=== PATIENT | female | born 1980 | race Caucasian/White ===

== ENCOUNTER 2017-05-28 07:50 | Emergency (ER) | payer MEDICAID ==
[2017-05-28] MEDS ORDERED: SODIUM CHLORIDE 0.9% 1,000 ML IV ONE (07:55)
--- NOTE | 2017-05-28 08:07 | ED Physician Documentation ---
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 denies: Fever Cardiac: denies: Chest pain / pressure Respiratory: denies: Dyspnea GI: reports: Abdominal Pain, Nausea. denies: Vomiting, Hematemesis : reports: Control. 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) : None HEENT: None Psych: None Musculoskeletal: Other Derm: None Other Past Medical History: chronic back pain - Past Surgical History Past Surgical History: Yes General: 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 /RACKING TECHNICIAN: Other - Present Medications Home Medications: Ambulatory Orders Medication Instructions Recorded Confirmed Ranitidine HCl [Zantac] 150 mg PO BID 28 Days 07/18/13 05/28/17 Cyclobenzaprine [Flexeril] 1 tab PO PRN 05/28/17 HYDROcod/ACETAM 5/325 [[place] 5/325] 1 ea PO Q6H PRN #15 tablet 05/28/17 Ibuprofen [Motrin] 400 mg PO Q6H PRN #30 tablet 05/28/17 Ondansetron Odt [Zofran] 4 mg TL Q6H PRN #10 tablet 05/28/17 - Allergies Allergies/Adverse Reactions: Allergies Allergy/AdvReac Type Severity Reaction Status Date / Time Latex, Natural Rubber Allergy Rash Verified 06/25/16 20:28 acetaminophen [From Percocet] AdvReac vomiting Verified 06/25/16 20:28 oxycodone HCl * AdvReac vomiting Verified 06/25/16 20:28 [From Percocet] - Social History Does the pt smoke?: No Smoking Status: Former smoker Does the pt drink ETOH?: No Does the pt have substance abuse?: No - Immunizations Immunizations are current?: Yes - POLST Patient has POLST: No PD ED PE NORMAL - Vitals Vital signs reviewed: Yes - General General: Alert and oriented X 3, Other (clutching ruq and curled up in position) - Neck Neck: Supple, no meningeal sign - Cardiac Cardiac: RRR - Respiratory Respiratory: No respiratory distress, Clear bilaterally - Abdomen Abdomen: Soft, Other (TTP RUQ with + murphys, open appy scar RLQ) - Derm Derm: Normal color - Neuro Neuro: Alert and oriented X 3 Results - Vitals Vitals: Vital Signs - 24 hr 05/28/17 05/28/17 05/28/17 07:54 11:43 13:50 Temperature 36.6 C 36.1 C L Heart Rate 77 58 L 80 Respiratory 18 18 20 Rate Blood Pressure 121/93 H 112/75 123/82 H O2 Saturation 100 100 98 Oxygen O2 Source Room air - Labs Labs: Laboratory Tests 05/28/17 05/28/17 05/28/17 09:35 09:35 09:35 WBC 8.0 RBC 4.35 Hgb 12.7 Hct 37.7 MCV 86.8 MCH 29.2 MCHC 33.6 RDW 12.2 Plt Count 202 MPV 9.4 Neut # 4.6 Lymph # 2.6 [place] # 0.6 Eos # 0.1 Baso # 0.1 Absolute Nucleated RBC 0.00 Nucleated RBCs 0.0 Sodium 138 Potassium 3.9 Chloride 109 Carbon Dioxide 21 Anion Gap 8.0 BUN 13 Creatinine 0.7 Estimated GFR (MDRD) 94 Glucose 129 H Calcium 8.6 Total Bilirubin 0.2 AST 40 ALT 55 Alkaline Phosphatase 43 Total Protein 6.6 L Albumin 3.4 Globulin 3.2 Albumin/Globulin Ratio 1.1 Lipase 28 Serum HCG, Qual NEGATIVE - Rads (name of study) GB sono Radiology: See rad report (no gallstones) CT abd pelvis with IV con Radiology: See rad report (descending colon epiploic appendagitis, ddx includes small omental infarction - bu no bowel ischemia noted) Departure - Departure Disposition: 01 Home, Self Care Clinical Impression: Epiploic appendagitis Condition: Good Follow-Up: Sintia Dennison ARNP [Primary Care Provider] - Prescriptions: Ibuprofen [Motrin] 400 mg PO Q6H PRN #30 tablet PRN Reason: Pain HYDROcod/ACETAM 5/325 [[place] 5/325] 1 ea PO Q6H PRN #15 tablet PRN Reason: Severe Pain Ondansetron Odt [Zofran] 4 mg TL Q6H PRN #10 tablet PRN Reason: Nausea / Vomiting Comments: You do not have gallstones or appendicitis The CT scan shows that your pain is due to a process called epipolic appendicitis which means that a bundle of fat and blood vessels attached to your colon that has become twisted and lost its blood flow. This is very painful but not dangerous and does not need surgery or antibiotics. It will take between 2 days and 2 weeks to resolve. You can go home and eat normally Because this is a very painful process I have prescribed motrin and vicodin for the pain Follow up with your PMD if not better in two weeks and return to the ER if worse or new symptoms develop Forms: Activity restrictions
[2017-05-28] MEDS ORDERED: ONDANSETRON 4 MG/2 ML VIAL IVP STA ×2 (08:08→10:36)
[2017-05-28] MEDS ORDERED: HYDROmorphone 1 MG/ML SYRINGE IVP STA ×2 (08:08→13:23)
[2017-05-28] MEDS ORDERED: ONDANSETRON 4 MG/2 ML VIAL ONE ×2 (08:16→10:43)
[2017-05-28] MEDS ORDERED: HYDROmorphone 1 MG/ML SYRINGE ONE ×2 (08:16→13:30)
--- NOTE | 2017-05-28 09:36 | Ultrasound Report ---
LIMITED ABDOMEN ULTRASOUND: 05/28/2017 CLINICAL HISTORY: Right upper quadrant pain. TECHNIQUE: Real time scanning by the associate scientist with saved static images were reviewed. FINDINGS: LIVER: 19 cm in length. Unremarkable echotexture. Normal direction of portovenous blood flow. GALLBLADDER: Negative. No stones. Wall thickness 2 mm. COMMON BILE DUCT: 5 mm. RIGHT KIDNEY: 10.6 cm in length. Unremarkable. No hydronephrosis. FREE FLUID: None. INFERIOR VENA CAVA AND PANCREATIC HEAD: Unremarkable. AORTA: Normal size. COMMENT: Increased right upper quadrant gas. IMPRESSION: MILD HEPATOMEGALY. OTHERWISE, NEGATIVE ABDOMEN ULTRASOUND. FINDINGS ARE SIMILAR TO THE [facility] ULTRASOUND OF 07/18/2013. JOB #: [id number] EXT JOB #:[id number]
[2017-05-28 09:42] LABS: BASOPHILS # (AUTO) 0.1 10^3/uL (0.0-0.1); BASOPHILS % (AUTO) 0.7 %; EOSINOPHILS # (AUTO) 0.1 10^3/uL (0.0-0.7); EOSINOPHILS % (AUTO) 1.3 %; HCT - HEMATOCRIT 37.7 % (37.0-47.0); HGB - HEMOGLOBIN 12.7 g/dL (12.0-16.0); LYMPHOCYTES # (AUTO) 2.6 10^3/uL (1.5-3.5); LYMPHOCYTES % (AUTO) 32.9 %; MEAN CORPUSCULAR HEMOGLOBIN 29.2 pg (27.0-31.0); MEAN CORPUSCULAR HGB CONC 33.6 g/dL (32.0-36.0); MEAN CORPUSCULAR VOLUME 86.8 fL (81.0-99.0); MEAN PLATELET VOLUME 9.4 fL (7.9-10.8); MONOCYTES # (AUTO) 0.6 10^3/uL (0.0-1.0); MONOCYTES % (AUTO) 7.2 %; NEUTROPHILS # (AUTO) 4.6 10^3/uL (1.5-6.6); NEUTROPHILS % (AUTO) 57.9 %; RED BLOOD COUNT 4.35 10^6/uL (4.20-5.40); RED CELL DISTRIBUTION WIDTH 12.2 % (12.0-15.0)
[2017-05-28 10:00] LABS: ALBUMIN/GLOBULIN RATIO 1.1 (1.0-2.2); BILIRUBIN,TOTAL 0.2 mg/dL (0.2-1.0); CALCIUM 8.6 mg/dL (8.5-10.3); CREATININE 0.7 mg/dL (0.4-1.0); POTASSIUM 3.9 mmol/L (3.5-5.0); TOTAL PROTEIN 6.6 g/dL (6.7-8.2)
[2017-05-28] MEDS ORDERED: IOPAMIDOL-300 100 ML VIAL ONE (12:25)
[2017-05-28] MEDS ORDERED: IOPAMIDOL-300 100 ML VIAL IVP ONE (12:52)
--- NOTE | 2017-05-28 13:29 | CT Preliminary Report ---
Exam: CT Abdomen/Pelvis W/ IMPRESSION: 1. Findings are most suggestive of descending colon epiploic appendagitis. Differential includes a sm all omental infarction. 2. Chronic and incidental findings as above. [facility] SITE ID: [id number]
--- NOTE | 2017-05-28 13:32 | CT Report ---
EXAM: CT ABDOMEN AND PELVIS EXAM DATE: 05/28/2017 12:52 PM. CLINICAL HISTORY: Upper abd pain, sono non diagnostic. COMPARISONS: Ultrasound performed earlier the same day. CT abdomen and pelvis 06/25/2016. TECHNIQUE: Routine helical CT imaging was performed through the abdomen and pelvis. IV contrast: 100 cc Isovue-300. Enteric contrast: No. Reconstructions: Coronal and sagittal. In accordance with CT protocol optimization, one or more of the following dose reduction techniques w ere utilized for this exam: automated exposure control, adjustment of mA and/or KV based on patient s ize, or use of iterative reconstructive technique. FINDINGS: Lung Bases: Normal. Liver: Probable mild hepatomegaly; otherwise normal. Gallbladder/Bile Ducts: Within normal limits. Spleen: Course scattered parenchymal calcifications are similar to prior. The spleen is otherwise wit hin normal limits. Pancreas: Normal. Adrenal Glands: Normal. Kidneys: Normal. No masses or hydronephrosis. Peritoneal Cavity/Bowel: Inflammatory fat stranding adjacent to the descending colon measures 2.7 x 1 .2 cm (axial image 58 and coronal image 28). There is central fat density within the inflammation. Th e appendix is not visualized; no pericecal inflammatory change. Pelvic Organs: The urinary bladder and imaged pelvic organs are within normal limits. Presumed contra ceptive device in place. Vasculature: Normal. Bones: No significant abnormality. Other: None. IMPRESSION: 1. Findings are most suggestive of descending colon epiploic appendagitis. Differential includes a sm all omental infarction. 2. Chronic and incidental findings as above. [facility] Referring Provider Line: [phone] SITE ID: [id number]
[2017-05-28] MEDS ORDERED: PROMETHAZINE INJ 25 MG in SODIUM CHLORIDE 0.9% 50 ML IV STA (13:48)
[2017-05-28 13:51] VITALS: BP 123/82
[2017-05-28] MEDS ORDERED: PROMETHAZINE 25 MG/1 ML VIAL ONE (13:56)
[2017-05-28] MEDS ORDERED: SODIUM CHLORIDE FLUSH 0.9% 10 ML SYRINGE IVP ONE (14:01)
== END 2017-05-28 14:41 | disposition home or self-care (01) ==
LOC: ED 07:50
DX: K63.89 Other specified diseases of intestine (principal)
CPT/HCPCS: 36415; 74177; 76705; 80053; 83690; 84703; 85025; 96361; 96365; 96375; 96376; 99283; 99284; J1170; J7040; Q9967

== ENCOUNTER 2017-06-04 18:33 | Emergency (ER) | payer MEDICAID ==
[2017-06-04 19:51] LABS: BILIRUBIN,URINE NEGATIVE (NEGATIVE)
[2017-06-04 19:56] LABS: UA CHARGE (STRIP ONLY) YES; UR CULTURE IF IND NOT INDICATED
[2017-06-04 19:57] LABS: HCG UR QUAL NEGATIVE
[2017-06-04] MEDS ORDERED: MORPHINE 10 MG/ML VIAL IVP STA (20:32)
[2017-06-04] MEDS ORDERED: SODIUM CHLORIDE 0.9% 1,000 ML IV ONE (20:32)
[2017-06-04] MEDS ORDERED: KETOROLAC 60 MG/2 ML VIAL IVP STA (20:32)
[2017-06-04] MEDS ORDERED: KETOROLAC 15 MG/ML VIAL ONE (20:44)
[2017-06-04] MEDS ORDERED: MORPHINE 2 MG/ML SYRINGE ONE ×2 (20:44)
--- NOTE | 2017-06-04 20:56 | ED Physician Documentation ---
PD HPI ABD PAIN - Stated complaint Stated Complaint: ABD PX/NAUSEA - Chief complaint Chief Complaint: Abd Pain - History obtained from History obtained from: Patient - History of Present Illness Timing - onset: How many weeks ago Timing - details: Gradual onset, Waxing and waning Quality: Cramping, Aching, Sharp Location: All over / everywhere, RUQ, LUQ Worsened by: Position, Palpation Associated symptoms: Nausea. No: Vomiting, Hematemesis Similar symptoms before: Work up / diagnostics, Treatment Recently seen: Emergency Dept - Additional information Additional information: Patient is a 36 year old female presenting to the emergency department for abdominal pain. patient was seen about a week ago and diagnosed with appendigitis. patient has a follow up appointment in two days but ran out of meds and the pain has been persistent so the patient came in for evaluation. Review of Systems Constitutional: denies: Fever, Chills Eyes: reports: Reviewed and negative Ears: reports: Reviewed and negative Nose: denies: Rhinorrhea / runny nose, Congestion Throat: denies: Sore throat Cardiac: denies: Chest pain / pressure Respiratory: denies: Cough, Wheezing GI: reports: Abdominal Pain, Nausea. 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) : None HEENT: None Psych: None Musculoskeletal: Other Derm: None - Past Surgical History Past Surgical History: Yes General: 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 /AUDIO VISUAL DIRECTOR: Other - Present Medications Home Medications: Ambulatory Orders Medication Instructions Recorded Confirmed Ranitidine HCl [Zantac] 150 mg PO BID 28 Days tablet 07/18/13 05/28/17 Cyclobenzaprine [Flexeril] 1 tab PO PRN 05/28/17 HYDROcod/ACETAM 5/325 [[place] 5/325] 1 ea PO Q6H PRN #15 tablet 05/28/17 Ibuprofen [Motrin] 400 mg PO Q6H PRN #30 tablet 05/28/17 Ondansetron Odt [Zofran] 4 mg TL Q6H PRN #10 tablet 05/28/17 Hydrocodone/Acetaminophen [Vicodin 1 each PO Q6H #6 tablet 06/04/17 5-300 mg Tablet] Ondansetron Odt [Zofran] 4 mg TL Q6H PRN #14 tablet 06/04/17 - Allergies Allergies/Adverse Reactions: Allergies Allergy/AdvReac Type Severity Reaction Status Date / Time Latex, Natural Rubber Allergy Rash Verified 06/04/17 18:39 oxycodone HCl * AdvReac vomiting Verified 06/04/17 18:39 [From Percocet] - Social History Does the pt smoke?: No Smoking Status: Never smoker Does the pt drink ETOH?: No Does the pt have substance abuse?: No - Immunizations Immunizations are current?: Yes - POLST Patient has POLST: No PD ED PE NORMAL - Vitals Vital signs reviewed: Yes - General General: Alert and oriented X 3, No acute distress - HEENT HEENT: Atraumatic, PERRL - Neck Neck: Supple, no meningeal sign - Cardiac Cardiac: RRR, No murmur - Respiratory Respiratory: No respiratory distress, Clear bilaterally - Abdomen Abdomen: Soft, Non distended - Derm Derm: Normal color, No rash - Extremities Extremities: No deformity, No edema - Neuro Neuro: Alert and oriented X 3, No motor deficit, No sensory deficit, Normal speech - Psych Psych: Normal mood, Normal affect PD ED PE EXPANDED - HEENT HEENT: Dry mucous membranes - Abdomen Abdomen: Tender to palpation, Generalized/diffuse. No: Rebound, Guarding Results - Vitals Vitals: Vital Signs - 24 hr 06/04/17 06/04/17 06/04/17 18:36 21:47 22:40 Temperature 36 C L 36.3 C L 36.3 C L Heart Rate 95 73 69 Respiratory 20 16 12 Rate Blood Pressure 126/88 H 109/66 128/84 H O2 Saturation 96 97 100 Oxygen O2 Source Room air - Labs Labs: Laboratory Tests 06/04/17 06/04/17 06/04/17 19:41 19:41 21:21 WBC 9.1 RBC 4.36 Hgb 12.8 Hct 37.4 MCV 85.8 MCH 29.3 MCHC 34.2 RDW 12.3 Plt Count 252 MPV 9.3 Neut # 4.9 Lymph # 3.2 [place] # 0.8 Eos # 0.1 Baso # 0.1 Absolute Nucleated RBC 0.00 Nucleated RBC % 0.0 Sodium Potassium Chloride Carbon Dioxide Anion Gap BUN Creatinine Estimated GFR (MDRD) Glucose Calcium Total Bilirubin AST ALT Alkaline Phosphatase Total Protein Albumin Globulin Albumin/Globulin Ratio Lipase Urine Color YELLOW Urine Clarity CLEAR Urine pH 6.0 Ur Specific [place] 1.025 1.025 Urine Protein NEGATIVE Urine Glucose (UA) NEGATIVE Urine Ketones NEGATIVE Urine Occult Blood NEGATIVE Urine Nitrite NEGATIVE Urine Bilirubin NEGATIVE Urine Urobilinogen 0.2 (NORMAL) Ur Leukocyte Esterase NEGATIVE Ur Microscopic Review NOT INDICATED Urine Culture Comments NOT INDICATED Urine HCG, Qual NEGATIVE 06/04/17 21:21 WBC RBC Hgb Hct MCV MCH MCHC RDW Plt Count MPV Neut # Lymph # [place] # Eos # Baso # Absolute Nucleated RBC Nucleated RBC % Sodium 138 Potassium 3.7 Chloride 104 Carbon Dioxide 24 Anion Gap 10.0 BUN 18 Creatinine 0.9 Estimated GFR (MDRD) 70 L Glucose 122 H Calcium 9.3 Total Bilirubin 0.5 AST 25 ALT 30 Alkaline Phosphatase 39 L Total Protein 7.2 Albumin 3.9 Globulin 3.3 Albumin/Globulin Ratio 1.2 Lipase 24 Urine Color Urine Clarity Urine pH Ur Specific [place] Urine Protein Urine Glucose (UA) Urine Ketones Urine Occult Blood Urine Nitrite Urine Bilirubin Urine Urobilinogen Ur Leukocyte Esterase Ur Microscopic Review Urine Culture Comments Urine HCG, Qual PD MEDICAL DECISION MAKING - ED course Complexity details: reviewed old records, reviewed results, re-evaluated patient , considered differential, d/w patient ED course: Patient was seen and examined at bedside. patient labs were drawn, urine was collected. Patient's previous records were reviewed. Patient was treated with toradol and morphine as well as iv fluids. When patient's diagnostics came back they were all within normal limits. patient had close outpatient follow up and was stable for discharge. Departure - Departure Disposition: 01 Home, Self Care Clinical Impression: Epiploic appendagitis Condition: Good Instructions: Abdominal Pain Follow-Up: Sintia Dennison ARNP [Primary Care Provider] - Within 3 Days (please follow up with your doctor at your appointment on friday) Prescriptions: Hydrocodone/Acetaminophen [Vicodin 5-300 mg Tablet] 1 each PO Q6H #6 tablet Ondansetron Odt [Zofran] 4 mg TL Q6H PRN #14 tablet PRN Reason: Nausea / Vomiting Comments: Your diagnostics today were within normal limits. It is likely an exacerbation of your abdominal pain. You should follow up with your pmd on friday for further evaluation and care.
[2017-06-04 21:27] LABS: BASOPHILS # (AUTO) 0.1 10^3/uL (0.0-0.1); BASOPHILS % (AUTO) 0.7 %; EOSINOPHILS # (AUTO) 0.1 10^3/uL (0.0-0.7); EOSINOPHILS % (AUTO) 1.1 %; HCT - HEMATOCRIT 37.4 % (37.0-47.0); HGB - HEMOGLOBIN 12.8 g/dL (12.0-16.0); LYMPHOCYTES # (AUTO) 3.2 10^3/uL (1.5-3.5); LYMPHOCYTES % (AUTO) 35.3 %; MEAN CORPUSCULAR HEMOGLOBIN 29.3 pg (27.0-31.0); MEAN CORPUSCULAR HGB CONC 34.2 g/dL (32.0-36.0); MEAN CORPUSCULAR VOLUME 85.8 fL (81.0-99.0); MEAN PLATELET VOLUME 9.3 fL (7.9-10.8); MONOCYTES # (AUTO) 0.8 10^3/uL (0.0-1.0); MONOCYTES % (AUTO) 8.6 %; NEUTROPHILS # (AUTO) 4.9 10^3/uL (1.5-6.6); NEUTROPHILS % (AUTO) 54.3 %; RED BLOOD COUNT 4.36 10^6/uL (4.20-5.40); RED CELL DISTRIBUTION WIDTH 12.3 % (12.0-15.0); UNCORRECTED WHITE BLOOD COUNT 9.1 x10^3/uL; WHITE BLOOD COUNT 9.1 x10^3/uL (4.8-10.8)
[2017-06-04] MEDS ORDERED: ONDANSETRON 4 MG/2 ML VIAL IVP STA (21:28)
[2017-06-04 21:38] LABS: ALBUMIN/GLOBULIN RATIO 1.2 (1.0-2.2); BILIRUBIN,TOTAL 0.5 mg/dL (0.2-1.0); CALCIUM 9.3 mg/dL (8.5-10.3); CREATININE 0.9 mg/dL (0.4-1.0); POTASSIUM 3.7 mmol/L (3.5-5.0); TOTAL PROTEIN 7.2 g/dL (6.7-8.2)
[2017-06-04] MEDS ORDERED: ONDANSETRON 4 MG/2 ML VIAL ONE (21:40)
[2017-06-04] MEDS ORDERED: HYDROcod/ACET 5/325 Prepack 6 PO STA (22:32)
[2017-06-04] MEDS ORDERED: HYDROcod/ACET 5/325 Prepack 6 PO ONE (22:37)
[2017-06-04 22:40] VITALS: BP 128/84
== END 2017-06-04 22:49 | disposition home or self-care (01) ==
LOC: ED 18:33
DX: K63.89 Other specified diseases of intestine (principal)
CPT/HCPCS: 36415; 80053; 81003; 81025; 83690; 85025; 96361; 96374; 96375; 99284; J2270; 81001; 87086

== ENCOUNTER 2018-06-11 14:15 | Emergency (ER) | payer MEDICAID ==
[2018-06-11] MEDS ORDERED: ASPIRIN CHEW 81 MG TABLET PO STA (14:39)
--- NOTE | 2018-06-11 14:43 | ED Physician Documentation ---
PD HPI CHEST PAIN - Stated complaint Stated Complaint: CHEST PX - Chief complaint Chief Complaint: Cardiac - History obtained from History obtained from: Patient - History of Present Illness Timing - onset: How many hours ago (3.5) Timing - onset during: Rest Timing - duration: Hours (3.5) Timing - details: Gradual onset Pain level max: 8 Pain level now: 7 Quality: Sharp Location: Left chest Radiation: Left upper extremity Improved by: Nothing Worsened by: Other (nothing). No: Exertion, Inspiration, Eating, Movement, Palpation, Position Associated symptoms: No: Shortness of air, Diaphoresis, Nausea, Vomiting, Feeling faint / dizzy, General Weakness, Palpitations, Cough Similar symptoms before: Has not had sx before Recently seen: Not recently seen - Additional information Additional information: No recent surgery, immobilization. No calf pain or swelling. 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) : None HEENT: None Psych: None Musculoskeletal: Other Derm: None - Past Surgical History Past Surgical History: Yes General: 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 /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: Other - Present Medications Home Medications: Ambulatory Orders Medication Instructions Recorded Confirmed Ranitidine HCl [Zantac] 150 mg PO BID 28 Days tablet 07/18/13 05/28/17 Cyclobenzaprine [Flexeril] 1 tab PO PRN 05/28/17 HYDROcod/ACETAM 5/325 [[place] 5/325] 1 ea PO Q6H PRN #15 tablet 05/28/17 Ibuprofen [Motrin] 400 mg PO Q6H PRN #30 tablet 05/28/17 Ondansetron Odt [Zofran] 4 mg TL Q6H PRN #10 tablet 05/28/17 Hydrocodone/Acetaminophen [Vicodin 1 each PO Q6H #6 tablet 09/27/17 5-300 mg Tablet] Ondansetron Odt [Zofran] 4 mg TL Q6H PRN #14 tablet 06/04/17 - Allergies Allergies/Adverse Reactions: Allergies Allergy/AdvReac Type Severity Reaction Status Date / Time Latex, Natural Rubber Allergy Rash Verified 06/11/18 14:25 oxycodone HCl * AdvReac vomiting Verified 06/11/18 14:25 [From Percocet] - Social History Does the pt smoke?: No Smoking Status: Former smoker Does the pt drink ETOH?: No Does the pt have substance abuse?: No - Immunizations Immunizations are current?: Yes - POLST Patient has POLST: No PD ED PE NORMAL - Vitals Vital signs reviewed: Yes - General General: Alert and oriented X 3, No acute distress - HEENT HEENT: Moist mucous membranes - Neck Neck: Supple, no meningeal sign - Cardiac Cardiac: RRR, Strong equal pulses - Respiratory Respiratory: No respiratory distress, Clear bilaterally - Abdomen Abdomen: Soft, Non tender, Non distended - Back Back: No spinal TTP - Derm Derm: Warm and dry - Extremities Extremities: No tenderness to palpate, Normal ROM s pain, No edema, No calf tenderness / cord - Neuro Neuro: Alert and oriented X 3 - Psych Psych: Normal mood, Normal affect - Free text exam Free text exam: No tenderness across the anterior chest wall Results - Vitals Vitals: Vital Signs - 24 hr 06/11/18 14:22 Temperature 35.9 C L Heart Rate 88 Respiratory 18 Rate Blood Pressure 148/96 H O2 Saturation 98 Oxygen O2 Source Room air - EKG (time done) 1423 Rate: Rate (enter#) (79) Rhythm: NSR [place]: Normal Intervals: Normal MA QRS: Normal Ischemia: Normal ST segments - Rads (name of study) cxr Radiology: Prelim report reviewed, EMP read contemporaneously, See rad report (No acute abnormality) PD MEDICAL DECISION MAKING - ED course Complexity details: reviewed results, re-evaluated patient, considered differential (No ST elevation HI, no aortic dissection, no PE, no tension pneumothorax, no aortic aneurysm), d/w patient ED course: Patient is a 37-year-old female who presents to the emergency department with sharp left-sided chest pain. Radiating to the left arm. This was constant for several hours before coming to the emergency department. Feels better after Toradol and hydrocodone. Did not change with aspirin. Negative d-dimer. No acute findings on EKG or troponin. Low risk for ACS. Will have her follow-up with her doctor for further care. Patient counseled regarding signs and symptoms for which I believe and urgent re-evaluation would be necessary. Patient with good understanding of and agreement to plan and is comfortable going home at this time This document was made in part using voice recognition software. While efforts are made to proofread this document, sound alike and grammatical errors may occur. - Sepsis Event Vital Signs: Vital Signs - 24 hr 06/11/18 14:22 Temperature 35.9 C L Heart Rate 88 Respiratory 18 Rate Blood Pressure 148/96 H O2 Saturation 98 Oxygen O2 Source Room air Departure - Departure Disposition: 01 Home, Self Care Clinical Impression: Atypical chest pain Condition: Good Instructions: ED Chest Pain Atypical Unkn Cause Follow-Up: Sintia Dennison ARNP [Primary Care Provider] - Within 1 week Comments: Return if you worsen. The cause of your symptoms is unclear today, but does not appear related to your heart today. follow up with your doctor for further care. Discharge Date/Time: 06/11/18 17:24
--- NOTE | 2018-06-11 15:18 | XRAY Report ---
Reason: chest pain Procedure Date: 06/11/2018 Accession Number: [id number] / [id number] Procedure: XR - Chest 1 View X-Ray CPT Code: 87592 FULL RESULT: EXAM: CHEST RADIOGRAPHY EXAM DATE: 06/11/2018 03:09 PM. CLINICAL HISTORY: Chest pain. COMPARISON: 10/20/2012 9:38 PM. TECHNIQUE: 1 view. FINDINGS: Lungs/Pleura: No focal opacities evident. No pleural effusion. No pneumothorax. Mediastinum: Within exam limitations, the cardiomediastinal contour is normal. Other: None. IMPRESSION: No acute cardiopulmonary abnormality. [facility]
[2018-06-11 16:34] LABS: BASOPHILS # (AUTO) 0.1 10^3/uL (0.0-0.1); EOSINOPHILS # (AUTO) 0.1 10^3/uL (0.0-0.7); EOSINOPHILS % (AUTO) 1.1 %; HGB - HEMOGLOBIN 13.4 g/dL (12.0-16.0); LYMPHOCYTES # (AUTO) 2.9 10^3/uL (1.5-3.5); LYMPHOCYTES % (AUTO) 39.2 %; MEAN CORPUSCULAR HEMOGLOBIN 29.5 pg (27.0-31.0); MEAN CORPUSCULAR HGB CONC 34.6 g/dL (32.0-36.0); MEAN CORPUSCULAR VOLUME 85.5 fL (81.0-99.0); MEAN PLATELET VOLUME 9.3 fL (7.9-10.8); MONOCYTES # (AUTO) 0.6 10^3/uL (0.0-1.0); MONOCYTES % (AUTO) 8.1 %; NEUTROPHILS # (AUTO) 3.8 10^3/uL (1.5-6.6); NEUTROPHILS % (AUTO) 50.6 %; PLT - PLATELET COUNT 242 10^3/uL (130-450); RED BLOOD COUNT 4.52 10^6/uL (4.20-5.40); RED CELL DISTRIBUTION WIDTH 12.7 % (12.0-15.0); WHITE BLOOD COUNT 7.4 x10^3/uL (4.8-10.8)
[2018-06-11 16:47] LABS: ALBUMIN/GLOBULIN RATIO 1.1 (1.0-2.2); BILIRUBIN,TOTAL 0.5 mg/dL (0.2-1.0); CALCIUM 9.4 mg/dL (8.5-10.3); CREATININE 1.1 mg/dL (0.4-1.0); TOTAL PROTEIN 7.6 g/dL (6.7-8.2)
[2018-06-11] MEDS ORDERED: KETOROLAC 60 MG/2 ML VIAL IM STA (16:58)
[2018-06-11] MEDS ORDERED: HYDROcod/ACETAM 5/325 MG TABLET PO STA (16:59)
[2018-06-11] MEDS ORDERED: ONDANSETRON ODT 4 MG TABLET TL STA (16:59)
[2018-06-11 17:23] VITALS: BP 140/84
== END 2018-06-11 17:24 | disposition home or self-care (01) ==
LOC: ED 14:15
DX: R07.89 Other chest pain (principal); Z87.891 Personal history of nicotine dependence
CPT/HCPCS: 36415; 71045; 80053; 83690; 84484; 85025; 85379; 93005; 96372; 99283; A9270; Q0162

== ENCOUNTER 2019-04-27 15:38 | Outpatient (CLI) | payer BC, MEDICAID ==
--- NOTE | 2019-04-29 08:59 | XRAY Report ---
Reason: EPIGASTRIC PAIN Procedure Date: 04/27/2019 Accession Number: [id number] / [id number] Procedure: XRN - Abdomen Acute CPT Code: FULL RESULT: EXAM: ABDOMINAL SERIES AND PA CHEST EXAM DATE: 04/27/2019 04:02 PM. CLINICAL HISTORY: Epigastric pain. COMPARISON: CHEST 1 VIEW 06/11/2018 2:59 PM. TECHNIQUE: 2 views abdomen and 1 view chest. FINDINGS: CHEST: Lungs/Pleura: No focal opacities. No effusion or pneumothorax. Mediastinum: Within exam limitations, cardiomediastinal contour is normal. ABDOMEN: Bowel Gas Pattern: Within normal limits. No dilated loops or abnormal fluid levels. Free Air: None. Other: None. IMPRESSION: Normal abdominal series (including 1-view chest). [facility]
== END 2019-04-27 15:39 | disposition home or self-care (01) ==
LOC: DI.N 15:38
PROVIDERS: ATTEND Family Medicine
DX: R10.13 Epigastric pain (principal)
CPT/HCPCS: 36415; 74022; 80053; 82150; 83690; 85025

== ENCOUNTER 2019-04-27 16:52 | Outpatient (CLI) | payer BC, MEDICAID ==
[2019-04-27 17:23] LABS: BASOPHILS % (AUTO) 0.5 %; EOSINOPHILS # (AUTO) 0.1 10^3/uL (0.0-0.7); EOSINOPHILS % (AUTO) 1.7 %; HGB - HEMOGLOBIN 12.6 g/dL (12.0-16.0); LYMPHOCYTES # (AUTO) 2.5 10^3/uL (1.5-3.5); LYMPHOCYTES % (AUTO) 32.8 %; MEAN CORPUSCULAR HEMOGLOBIN 28.3 pg (27.0-31.0); MEAN CORPUSCULAR HGB CONC 32.1 g/dL (32.0-36.0); MEAN CORPUSCULAR VOLUME 88.1 fL (81.0-99.0); MEAN PLATELET VOLUME 10.8 fL (7.9-10.8); MONOCYTES # (AUTO) 0.7 10^3/uL (0.0-1.0); MONOCYTES % (AUTO) 9.1 %; NEUTROPHILS # (AUTO) 4.3 10^3/uL (1.5-6.6); NEUTROPHILS % (AUTO) 55.6 %; PLT - PLATELET COUNT 261 10^3/uL (130-450); RED BLOOD COUNT 4.46 10^6/uL (4.20-5.40); RED CELL DISTRIBUTION WIDTH 13.1 % (12.0-15.0); WHITE BLOOD COUNT 7.7 x10^3/uL (4.8-10.8)
[2019-04-27 17:32] LABS: ALBUMIN 4.3 g/dL (3.2-5.5); ALBUMIN/GLOBULIN RATIO 1.3 (1.0-2.2); BILIRUBIN,TOTAL 0.2 mg/dL (0.2-1.0); CALCIUM 9.6 mg/dL (8.5-10.3); CREATININE 0.7 mg/dL (0.4-1.0); TOTAL PROTEIN 7.5 g/dL (6.7-8.2)
== END 2019-04-27 16:53 | disposition home or self-care (01) ==
LOC: LAB 16:52
PROVIDERS: ATTEND Family Medicine
DX: R10.13 Epigastric pain (principal)
CPT/HCPCS: 36415; 80053; 82150; 83690; 85025

== ENCOUNTER 2019-04-28 07:20 | Outpatient (CLI) | payer BC, MEDICAID ==
[2019-04-28 19:29] LABS: H. PYLORIS ANTIGEN STL NEGATIVE (Negative)
== END 2019-04-28 23:59 | disposition home or self-care (01) ==
LOC: LAB.R 07:20
PROVIDERS: ATTEND Family Medicine
DX: R10.13 Epigastric pain (principal)
CPT/HCPCS: 87338; 87493

== ENCOUNTER 2019-04-29 09:37 | Emergency (ER) | payer BC, MEDICAID ==
[2019-04-29] MEDS ORDERED: MAG HYDROX/AL HYDROX/SIMETH 30 ML UDC PO STA (09:51)
[2019-04-29] MEDS ORDERED: PHENobarb/HYOSCY/ATROPINE/SCOP 5 ML SYRINGE PO STA (09:51)
[2019-04-29] MEDS ORDERED: LIDOCAINE VISCOUS 2% 15 ML UDC MM STA (09:51)
--- NOTE | 2019-04-29 09:55 | ED Physician Documentation ---
PD HPI ABD PAIN - Stated complaint Stated Complaint: UPPER ABD PX - Chief complaint Chief Complaint: Abd Pain - History obtained from History obtained from: Patient - History of Present Illness Timing - onset: How many days ago (5) Timing - details: Intermittant Quality: Sharp Location: Epigastric Worsened by: Moving Associated symptoms: Nausea. No: Fever, Vomiting, Diarrhea, Dysuria Recently seen: Clinic (2 days ago.) - Treatment prior to arrival Treatment prior to arrival: Zantac, Ibuprophen. - Additional information Additional information: The patient is a 38-year-old female who presents with epigastric abdominal pain that started 5 days ago and has recurred intermittently since that time. She describes it as a sharp pain that is worse with movement. She has found no difference with food. She has been using Zantac and ibuprofen without relief. She was seen by her primary physician 2 days ago for this pain. CBC, chemistry panel, and urinalysis at that time were unremarkable. She presents to the emergency department this morning because of recurrent/worsening pain. Past medical history is significant for gastroesophageal reflux disease for which she takes Zantac. Review of Systems Constitutional: denies: Fever Nose: denies: Congestion Throat: denies: Sore throat Cardiac: denies: Chest pain / pressure Respiratory: denies: Dyspnea, Cough GI: reports: Abdominal Pain, Nausea. denies: Vomiting, Diarrhea : reports: LMP (Currently on her menstrual period.). denies: Dysuria Skin: denies: Rash Musculoskeletal: denies: Back pain Neurologic: denies: Headache PD PAST MEDICAL HISTORY - Past Medical History Cardiovascular: None Respiratory: None Endocrine/Autoimmune: None GI: GERD, Ulcers AMBULATORY CARE COORDINATOR: Miscarriage(s) : None HEENT: None Psych: None Musculoskeletal: Other Derm: None - Past Surgical History Past Surgical History: Yes General: 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 /AMBULATORY CARE COORDINATOR: Other - Present Medications Home Medications: Ambulatory Orders Medication Instructions Recorded Confirmed raNITIdine HCl [Zantac] 150 mg PO BID 28 Days tablet 07/18/13 05/28/17 Cyclobenzaprine [Flexeril] 1 tab PO PRN 05/28/17 HYDROcod/ACETAM 5/325 [[place] 5/325] 1 ea PO Q6H PRN #15 tablet 05/28/17 Ibuprofen [Motrin] 400 mg PO Q6H PRN #30 tablet 05/28/17 Ondansetron Odt [Zofran] 4 mg TL Q6H PRN #10 tablet 05/28/17 Hydrocodone/Acetaminophen [Vicodin 1 each PO Q6H #6 tablet 06/04/17 5-300 mg Tablet] Ondansetron Odt [Zofran] 4 mg TL Q6H PRN #14 tablet 06/04/17 Cetirizine HCl/Pseudoephedrine 1 each PO BID PRN #30 tab.er.12h 08/15/18 [Zyrtec-D Tablet] Meloxicam [Mobic] 7.5 mg PO BID PRN #20 tablet 08/15/18 Hydrocodone/Acetaminophen 1 - 2 each PO Q6H PRN #20 tablet 04/29/19 [Hydrocodon-Acetaminophen 5-325] Omeprazole 40 mg PO DAILY #30 capsule. 04/29/19 Promethazine [Phenergan] 25 mg PO Q6H PRN #10 tab 04/29/19 - Allergies Allergies/Adverse Reactions: Allergies Allergy/AdvReac Type Severity Reaction Status Date / Time Latex, Natural Rubber Allergy Rash Verified 04/29/19 09:42 oxycodone HCl * AdvReac vomiting Verified 04/29/19 09:42 [From Percocet] - Social History Does the pt smoke?: No Smoking Status: Never smoker Does the pt drink ETOH?: No Does the pt have substance abuse?: No - Immunizations Immunizations are current?: Yes - POLST Patient has POLST: No PD ED PE NORMAL - Vitals Vital signs reviewed: Yes (Normal) - General General: Alert and oriented X 3, Well developed/nourished - HEENT HEENT: Atraumatic, Moist mucous membranes - Neck Neck: No adenopathy, No JVD - Cardiac Cardiac: RRR - Respiratory Respiratory: No respiratory distress, Clear bilaterally - Abdomen Abdomen: Normal bowel sounds, Soft, Other (Epigastric tenderness to palpation, without rebound or guarding.) - Back Back: No CVA TTP - Derm Derm: No rash - Extremities Extremities: No edema, No calf tenderness / cord - Neuro Neuro: Alert and oriented X 3, No motor deficit, Normal speech Results - Vitals Vitals: Vital Signs - 24 hr 04/29/19 04/29/19 09:39 11:45 Temperature 35.9 C L Heart Rate 92 88 Respiratory 19 16 Rate Blood Pressure 123/86 H 98/56 L O2 Saturation 96 Oxygen O2 Source Room air - Labs Labs: Laboratory Tests 04/29/19 04/29/19 04/29/19 10:55 10:55 13:30 WBC 9.5 RBC 4.64 Hgb 13.6 Hct 40.3 MCV 86.9 MCH 29.3 MCHC 33.7 RDW 12.8 Plt Count 275 MPV 11.1 H Neut # (Auto) 6.7 H Lymph # (Auto) 1.8 [place] # (Auto) 0.7 Eos # (Auto) 0.1 Baso # (Auto) 0.0 Absolute Nucleated RBC 0.00 Nucleated RBC % 0.0 Sodium 139 Potassium 3.8 Chloride 103 Carbon Dioxide 23 Anion Gap 13.0 BUN 17 Creatinine 0.8 Estimated GFR (MDRD) 80 L Glucose 100 Calcium 9.5 Total Bilirubin 0.5 AST 21 ALT 20 Alkaline Phosphatase 44 Total Protein 7.6 Albumin 4.3 Globulin 3.3 Albumin/Globulin Ratio 1.3 Lipase 36 Urine Color YELLOW Urine Clarity CLEAR Urine pH 6.0 Ur Specific [place] 1.025 Urine Protein NEGATIVE Urine Glucose (UA) NEGATIVE Urine Ketones NEGATIVE Urine Occult Blood NEGATIVE Urine Nitrite NEGATIVE Urine Bilirubin NEGATIVE Urine Urobilinogen 0.2 (NORMAL) Ur Leukocyte Esterase NEGATIVE Ur Microscopic Review NOT INDICATED Urine Culture Comments NOT INDICATED - Rads (name of study) RUQ U/S Radiology: Prelim report reviewed, EMP read contemporaneously, See rad report (Normal. No cholelithiasis or cholecystitis.) PD MEDICAL DECISION MAKING - ED course Complexity details: reviewed old records, reviewed results, re-evaluated patient, considered differential, d/w patient ED course: The patient's presentation is most consistent with gastritis versus peptic ulcer disease. It is likely that ibuprofen has exacerbated this condition. Her CBC and chemistry panel are unremarkable. Her urinalysis is negative. With a normal lipase, pancreatitis is unlikely. An ultrasound of her right upper quadrant was performed, and reveals normal liver and gallbladder, without evidence of cholelithiasis. Treatment in the emergency department included administration of GI cocktail which did not relieve her pain. An IV was established and further treatment involved administration of normal saline 1 L IV, famotidine 10 mg IV, Zofran 4 mg IV, and fentanyl 100 g IV. Her pain results with the above treatment, and repeat examination reveals a benign abdomen. She is being discharged with prescriptions for Phenergan, omeprazole, and Vicodin, 14 tablets. I discussed with her the diagnosis, symptomatic treatment and outpatient follow-up, as well as potentially worrisome signs or symptoms that should prompt reevaluation in the emergency department. Departure - Departure Disposition: Home, Self Care Clinical Impression: Gastritis Qualifiers: Gastritis type: unspecified gastritis Chronicity: acute Gastritis bleeding: without bleeding Qualified Code(s): K29.00 - Acute gastritis without bleeding Condition: Stable Instructions: ED PUD Vs Gastritis Follow-Up: Sintia Dennison ARNP [Primary Care Provider] - Prescriptions: Hydrocodone/Acetaminophen [Hydrocodon-Acetaminophen 5-325] 1 - 2 each PO Q6H PRN #20 tablet PRN Reason: pain Omeprazole 40 mg PO DAILY #30 capsule. Promethazine [Phenergan] 25 mg PO Q6H PRN #10 tab PRN Reason: Nausea / Vomiting Comments: Avoid taking ibuprofen. Take omeprazole daily as prescribed. You can use Phenergan as prescribed if needed for nausea. You can use Vicodin as prescribed if needed for pain. Follow-up with your primary physician within 1 to 2 weeks. Call to schedule an appointment. Return to the emergency department if you develop increasing abdominal pain, persistent vomiting, or otherwise worsening symptoms. Discharge Date/Time: 04/29/19 13:59
[2019-04-29] MEDS ORDERED: FAMOTIDINE 20 MG/2 ML VIAL IVP STA (10:37)
[2019-04-29] MEDS ORDERED: fentaNYL 100 MCG/2 ML VIAL IVP STA (10:37)
[2019-04-29] MEDS ORDERED: SODIUM CHLORIDE 0.9% 1,000 ML IV ONE (10:37)
[2019-04-29] MEDS ORDERED: ONDANSETRON 4 MG/2 ML VIAL IVP STA (10:38)
[2019-04-29 11:17] LABS: BASOPHILS % (AUTO) 0.4 %; EOSINOPHILS # (AUTO) 0.1 10^3/uL (0.0-0.7); EOSINOPHILS % (AUTO) 1.5 %; HGB - HEMOGLOBIN 13.6 g/dL (12.0-16.0); LYMPHOCYTES # (AUTO) 1.8 10^3/uL (1.5-3.5); LYMPHOCYTES % (AUTO) 19.3 %; MEAN CORPUSCULAR HEMOGLOBIN 29.3 pg (27.0-31.0); MEAN CORPUSCULAR HGB CONC 33.7 g/dL (32.0-36.0); MEAN CORPUSCULAR VOLUME 86.9 fL (81.0-99.0); MEAN PLATELET VOLUME 11.1 fL (7.9-10.8); MONOCYTES # (AUTO) 0.7 10^3/uL (0.0-1.0); MONOCYTES % (AUTO) 7.5 %; NEUTROPHILS # (AUTO) 6.7 10^3/uL (1.5-6.6); NEUTROPHILS % (AUTO) 70.9 %; PLT - PLATELET COUNT 275 10^3/uL (130-450); RED BLOOD COUNT 4.64 10^6/uL (4.20-5.40); RED CELL DISTRIBUTION WIDTH 12.8 % (12.0-15.0); WHITE BLOOD COUNT 9.5 x10^3/uL (4.8-10.8)
[2019-04-29 11:32] LABS: ALBUMIN 4.3 g/dL (3.2-5.5); ALBUMIN/GLOBULIN RATIO 1.3 (1.0-2.2); BILIRUBIN,TOTAL 0.5 mg/dL (0.2-1.0); CALCIUM 9.5 mg/dL (8.5-10.3); CREATININE 0.8 mg/dL (0.4-1.0); TOTAL PROTEIN 7.6 g/dL (6.7-8.2)
[2019-04-29 11:54] VITALS: BP 98/56
--- NOTE | 2019-04-29 13:24 | Ultrasound Report ---
Reason: Epigastric abdominal pain Procedure Date: 04/29/2019 Accession Number: [id number] / [id number] Procedure: US - Abdomen Limited CPT Code: FULL RESULT: EXAM: ABDOMEN ULTRASOUND LIMITED, RUQ EXAM DATE: 04/29/2019 12:37 PM. CLINICAL HISTORY: Epigastric abdominal pain. COMPARISON: ABDOMEN LIMITED 05/28/2017 8:34 AM. TECHNIQUE: Real-time scanning was performed with static images obtained. FINDINGS: Liver: Normal in size and echotexture. 16.6 cm. Main portal vein flow: Hepatopetal. Gallbladder: Normal. No stones, wall thickening, or sonographic Castillo's sign. Biliary System: CBD measures 5.5 mm. No intrahepatic or extrahepatic ductal dilatation. Other: Normal appearance of the right kidney measuring 10.4 cm. IMPRESSION: Normal. No cholelithiasis or cholecystitis. RADIA
[2019-04-29 13:43] LABS: BILIRUBIN,URINE NEGATIVE (NEGATIVE); GLUCOSE, URINE (UA) NEGATIVE (NEGATIVE); KETONES,URINE (UA) NEGATIVE (NEGATIVE); LEUKOCYTE ESTERASE, URINE NEGATIVE (NEGATIVE); NITRITE,URINE NEGATIVE (NEGATIVE); OCCULT BLOOD,URINE NEGATIVE (NEGATIVE); PROTEIN,URINE NEGATIVE (NEGATIVE); UROBILINOGEN,URINE 0.2 (NORMAL) E.U./dL (NORMAL)
[2019-04-29 13:47] LABS: CLARITY,URINE CLEAR (CLEAR)
== END 2019-04-29 13:59 | disposition home or self-care (01) ==
LOC: ED 09:37
DX: K29.00 Acute gastritis without bleeding (principal); K21.9 Gastro-esophageal reflux disease without esophagitis
CPT/HCPCS: 36415; 76705; 80053; 81003; 83690; 85025; 96374; 99284; A9270; 81001; 87086

== ENCOUNTER 2019-07-29 08:35 | Outpatient (CLI) | payer BC, MEDICAID ==
[2019-07-29 12:38] LABS: CHOL/HDL RATIO 7.6 (<4.4); CHOLESTEROL 296 mg/dL; HDL CHOLESTEROL 39 mg/dL; LDL CHOLESTEROL,CALCULATED 198 mg/dL; LDL/HDL RATIO 5.1 (<4.4); VLDL CHOLESTEROL 59 mg/dL
[2019-07-29 12:47] LABS: THYROID STIMULATING HORMONE 1.57 uIU/mL (0.34-5.60)
[2019-07-29 12:53] LABS: PROLACTIN 9.22 ng/mL
[2019-07-30 14:47] LABS: HIV AG/AB 4TH GEN NON-REACTIVE (NON-REACTIVE)
== END 2019-07-29 23:59 | disposition home or self-care (01) ==
LOC: LAB.N 08:35
PROVIDERS: ATTEND Obstetrics & Gynecology
DX: O92.6 Galactorrhea (principal); Z13.220 Encounter for screening for lipoid disorders; Z13.29 Encounter for screening for other suspected endocrine disorder; Z11.3 Encounter for screening for infections with a predominantly sexual mode of transmission
CPT/HCPCS: 36415; 80061; 81599; 83721; 84146; 84443; 86592; 87389

== ENCOUNTER 2019-11-12 13:40 | Outpatient (CLI) | payer BC, MEDICAID | END 2019-11-12 23:59 | disposition home or self-care (01) | LOC: LAB.R 13:40 | PROVIDERS: ATTEND Physician Assistant Medical | DX: R05 Cough (principal); R68.83 Chills (without fever) | CPT/HCPCS: 87275; 87276 ==

== ENCOUNTER 2020-07-13 13:46 | Outpatient (CLI) | payer BC, MEDICAID ==
--- NOTE | 2020-07-13 13:48 | XRAY Report ---
PROCEDURE: Foot 3 View RT INDICATIONS: Right fifth toe fracture TECHNIQUE: 3 views of the foot were acquired. COMPARISON: No comparison study available. FINDINGS: Bones: Mildly displaced obliquely oriented fracture of the right fifth proximal phalanx without intra -articular extension. There is bony bridging callus traversing the fracture line.. Soft tissues: No tibiotalar joint effusion. Achilles tendon appears normal. IMPRESSION: Findings indicative of ongoing healing of the right fifth proximal phalanx fracture Reviewed by: Jeronimo Briggs MD on 07/13/2020 1:47 PM PST Approved by: Jeronimo Briggs MD on 07/13/2020 1:47 PM PST Station ID: [id number]
== END 2020-07-13 23:59 | disposition home or self-care (01) ==
LOC: DI.WCP 13:46
PROVIDERS: ATTEND Orthopaedic Surgery
DX: S92.515D Nondisplaced fracture of proximal phalanx of left lesser toe(s), subsequent encounter for fracture with routine healing (principal)

== ENCOUNTER 2020-10-19 08:00 | Outpatient (CLI) | payer BC, MEDICAID ==
[2020-10-19 12:01] LABS: BASOPHILS # (AUTO) 0.1 10^3/uL (0.0-0.1); BASOPHILS % (AUTO) 0.9 %; EOSINOPHILS # (AUTO) 0.1 10^3/uL (0.0-0.7); EOSINOPHILS % (AUTO) 1.2 %; HGB - HEMOGLOBIN 13.6 g/dL (12.0-16.0); LYMPHOCYTES # (AUTO) 2.3 10^3/uL (1.5-3.5); LYMPHOCYTES % (AUTO) 27.1 %; MEAN CORPUSCULAR HEMOGLOBIN 29.1 pg (27.0-31.0); MEAN CORPUSCULAR HGB CONC 33.1 g/dL (32.0-36.0); MEAN CORPUSCULAR VOLUME 87.8 fL (81.0-99.0); MEAN PLATELET VOLUME 10.7 fL (7.9-10.8); MONOCYTES # (AUTO) 0.5 10^3/uL (0.0-1.0); MONOCYTES % (AUTO) 5.8 %; NEUTROPHILS # (AUTO) 5.5 10^3/uL (1.5-6.6); NEUTROPHILS % (AUTO) 64.9 %; PLT - PLATELET COUNT 287 10^3/uL (130-450); RED BLOOD COUNT 4.68 10^6/uL (4.20-5.40); RED CELL DISTRIBUTION WIDTH 12.6 % (12.0-15.0); WHITE BLOOD COUNT 8.4 x10^3/uL (4.8-10.8)
[2020-10-19 12:26] LABS: HEMOGLOBIN A1c% 6.1 % (4.27-6.07)
[2020-10-19 12:39] LABS: ALBUMIN 3.9 g/dL (3.2-5.5); ALBUMIN/GLOBULIN RATIO 1.1 (1.0-2.2); ALKALINE PHOSPHATASE 47 IU/L (42-121); ALT ALANINE AMINOTRANSFERASE 64 IU/L (10-60); AST ASPARTATE AMINOTRANSFERASE 50 IU/L (10-42); BILIRUBIN,TOTAL 0.5 mg/dL (0.2-1.0); BUN - BLOOD UREA NITROGEN 11 mg/dL (6-20); CALCIUM 9.5 mg/dL (8.5-10.3); CARBON DIOXIDE - CO2 23 mmol/L (21-32); CHLORIDE 102 mmol/L (101-111); CHOL/HDL RATIO 6.2 (<4.4); CHOLESTEROL 248 mg/dL; CREATININE 0.7 mg/dL (0.4-1.0); GLUCOSE 119 mg/dL (70-100); HDL CHOLESTEROL 40 mg/dL; LDL CHOLESTEROL,CALCULATED 150 mg/dL; LDL/HDL RATIO 3.8 (<4.4); TOTAL PROTEIN 7.5 g/dL (6.7-8.2); VLDL CHOLESTEROL 58 mg/dL
== END 2020-10-19 23:59 | disposition home or self-care (01) ==
LOC: LAB.WCP 08:00
PROVIDERS: ATTEND Family Medicine
DX: Z00.00 Encounter for general adult medical examination without abnormal findings (principal); E66.01 Morbid (severe) obesity due to excess calories; E78.5 Hyperlipidemia, unspecified
CPT/HCPCS: 36415; 80053; 80061; 83036; 83721; 84443; 85025

== ENCOUNTER 2021-11-19 08:00 | Outpatient (CLI) | payer BC, MEDICAID | END 2021-11-19 23:59 | LOC: LAB.N 08:00 | PROVIDERS: ATTEND Nurse Practitioner | DX: L02.91 Cutaneous abscess, unspecified (principal) | CPT/HCPCS: 87070; 87181; 87205 ==

== ENCOUNTER 2023-07-02 07:21 | Outpatient (CLI) | payer MEDICAID, OTHER ==
[2023-07-02 14:39] LABS: PARTIAL THROMBOPLASTIN TIME 29.9 secs (24.9-33.3)
[2023-07-02 14:40] LABS: BASOPHILS # (AUTO) 0.1 10^3/uL (0.0-0.1); BASOPHILS % (AUTO) 0.8 %; EOSINOPHILS # (AUTO) 0.1 10^3/uL (0.0-0.7); EOSINOPHILS % (AUTO) 1.8 %; HCT - HEMATOCRIT 40.2 % (37.0-47.0); HGB - HEMOGLOBIN 13.1 g/dL (12.0-16.0); LYMPHOCYTES # (AUTO) 2.2 10^3/uL (1.5-3.5); LYMPHOCYTES % (AUTO) 30.3 %; MEAN CORPUSCULAR HEMOGLOBIN 28.1 pg (27.0-31.0); MEAN CORPUSCULAR HGB CONC 32.6 g/dL (32.0-36.0); MEAN CORPUSCULAR VOLUME 86.1 fL (81.0-99.0); MEAN PLATELET VOLUME 11.2 fL (7.9-10.8); MONOCYTES # (AUTO) 0.5 10^3/uL (0.0-1.0); MONOCYTES % (AUTO) 7.1 %; NEUTROPHILS # (AUTO) 4.3 10^3/uL (1.5-6.6); NEUTROPHILS % (AUTO) 59.7 %; PLT - PLATELET COUNT 283 10^3/uL (130-450); RED BLOOD COUNT 4.67 10^6/uL (4.20-5.40); RED CELL DISTRIBUTION WIDTH 14.4 % (12.0-15.0); WHITE BLOOD COUNT 7.2 x10^3/uL (4.8-10.8)
[2023-07-02 15:05] LABS: INR 1.1 (0.8-1.2)
[2023-07-02 15:06] LABS: THYROID STIMULATING HORMONE 3.09 uIU/mL (0.34-5.60)
[2023-07-02 15:13] LABS: FERRITIN 14.2 ng/mL (11.0-306.8)
[2023-07-02 15:42] LABS: % IRON SATURATION 29 % (20-50); ALBUMIN 4.2 g/dL (3.2-5.5); ALBUMIN/GLOBULIN RATIO 1.3 (1.0-2.2); ALKALINE PHOSPHATASE 51 IU/L (42-121); ALT ALANINE AMINOTRANSFERASE 26 IU/L (10-60); AST ASPARTATE AMINOTRANSFERASE 26 IU/L (10-42); BILIRUBIN,TOTAL 0.6 mg/dL (0.2-1.0); BUN - BLOOD UREA NITROGEN 10 mg/dL (6-20); CALCIUM 9.6 mg/dL (8.5-10.3); CARBON DIOXIDE - CO2 23 mmol/L (21-32); CHLORIDE 102 mmol/L (101-111); CHOL/HDL RATIO 7.5 (<4.4); CHOLESTEROL 328 mg/dL; CREATININE 0.7 mg/dL (0.6-1.3); GFR - MDRD 91 (>89); GLUCOSE 122 mg/dL (74-104); HDL CHOLESTEROL 44 mg/dL; IRON 138 ug/dL (50-212); LDL CHOLESTEROL,CALCULATED 210 mg/dL; LDL/HDL RATIO 4.8 (<4.4); SODIUM 135 mmol/L (135-145); TOTAL IRON BINDING CAPACITY 472 ug/dL (250-450); TOTAL PROTEIN 7.5 g/dL (6.4-8.9); TRANSFERRIN 337 mg/dL (203-362); TRIGLYCERIDES 368 mg/dL (48-352); VLDL CHOLESTEROL 74 mg/dL
[2023-07-02 20:14] LABS: ESTIMATED AVERAGE GLUCOSE 126 mg/dL (70-100)
== END 2023-07-02 07:22 | disposition home or self-care (01) ==
LOC: LAB.S 07:21
PROVIDERS: ATTEND Nurse Practitioner Acute Care
DX: Z01.812 Encounter for preprocedural laboratory examination (principal); E55.9 Vitamin D deficiency, unspecified; E63.9 Nutritional deficiency, unspecified; R73.03 Prediabetes; R73.01 Impaired fasting glucose; E78.5 Hyperlipidemia, unspecified; Z13.9 Encounter for screening, unspecified
CPT/HCPCS: 36415; 80053; 80061; 82306; 82607; 82728; 82746; 83036; 83540; 83721; 84425; 84443; 84466; 84481; 85025; 85610; 85730

== ENCOUNTER 2024-03-17 07:22 | Outpatient (CLI) | payer OTHER ==
[2024-03-17 14:57] LABS: BASOPHILS # (AUTO) 0.1 10^3/uL (0.0-0.1); BASOPHILS % (AUTO) 1.1 %; EOSINOPHILS # (AUTO) 0.2 10^3/uL (0.0-0.7); EOSINOPHILS % (AUTO) 2.5 %; HCT - HEMATOCRIT 42.8 % (37.0-47.0); HGB - HEMOGLOBIN 13.6 g/dL (12.0-16.0); LYMPHOCYTES # (AUTO) 2.7 10^3/uL (1.5-3.5); LYMPHOCYTES % (AUTO) 44.9 %; MEAN CORPUSCULAR HEMOGLOBIN 29.5 pg (27.0-31.0); MEAN CORPUSCULAR HGB CONC 31.8 g/dL (32.0-36.0); MEAN CORPUSCULAR VOLUME 92.8 fL (81.0-99.0); MONOCYTES # (AUTO) 0.4 10^3/uL (0.0-1.0); MONOCYTES % (AUTO) 6.2 %; NEUTROPHILS # (AUTO) 2.8 10^3/uL (1.5-6.6); NEUTROPHILS % (AUTO) 45.1 %; PLT - PLATELET COUNT 285 10^3/uL (130-450); RED BLOOD COUNT 4.61 10^6/uL (4.20-5.40); RED CELL DISTRIBUTION WIDTH 13.3 % (12.0-15.0); WHITE BLOOD COUNT 6.1 x10^3/uL (4.8-10.8)
[2024-03-17 15:46] LABS: % IRON SATURATION 30 % (20-50); ALBUMIN 4.7 g/dL (3.2-5.5); ALBUMIN/GLOBULIN RATIO 1.7 (1.0-2.2); ALKALINE PHOSPHATASE 45 IU/L (42-121); ALT ALANINE AMINOTRANSFERASE 15 IU/L (10-60); AST ASPARTATE AMINOTRANSFERASE 20 IU/L (10-42); BILIRUBIN,TOTAL 0.7 mg/dL (0.2-1.0); BUN - BLOOD UREA NITROGEN 17 mg/dL (6-20); CALCIUM 10.2 mg/dL (8.5-10.3); CARBON DIOXIDE - CO2 27 mmol/L (21-32); CHLORIDE 104 mmol/L (101-111); CHOLESTEROL 211 mg/dL; CREATININE 0.7 mg/dL (0.6-1.3); GFR - MDRD 91 (>89); GLUCOSE 73 mg/dL (74-104); HDL CHOLESTEROL 42 mg/dL; IRON 127 ug/dL (50-212); LDL CHOLESTEROL,CALCULATED 140 mg/dL; LDL/HDL RATIO 3.3 (<4.4); POTASSIUM 3.7 mmol/L (3.5-4.5); SODIUM 139 mmol/L (135-145); TOTAL IRON BINDING CAPACITY 426 ug/dL (250-450); TOTAL PROTEIN 7.4 g/dL (6.4-8.9); TRANSFERRIN 304 mg/dL (203-362); TRIGLYCERIDES 146 mg/dL; VLDL CHOLESTEROL 29 mg/dL
[2024-03-17 15:56] LABS: THYROID STIMULATING HORMONE 3.16 uIU/mL (0.34-5.60)
[2024-03-17 16:02] LABS: FERRITIN 16.5 ng/mL (11.0-306.8)
[2024-03-17 22:53] LABS: ESTIMATED AVERAGE GLUCOSE 100 mg/dL (70-100); HEMOGLOBIN A1c% 5.1 % (4.27-6.07)
== END 2024-03-17 07:23 | disposition home or self-care (01) ==
LOC: LAB.S 07:22
PROVIDERS: ATTEND Surgery
DX: E46 Unspecified protein-calorie malnutrition (principal); E55.9 Vitamin D deficiency, unspecified
CPT/HCPCS: 36415; 80053; 80061; 82306; 82607; 82728; 82746; 83036; 83540; 83721; 84425; 84443; 84466; 85025

== ENCOUNTER 2024-05-24 08:00 | Outpatient (CLI) | payer OTHER ==
--- NOTE | 2024-05-24 17:02 | XRAY Report ---
PROCEDURE: Foot 1-2V LT INDICATIONS: SPRAIN OF LEFT FOOT TECHNIQUE: 3 views of the foot were acquired. COMPARISON: None. FINDINGS: Bones: No fractures or dislocations. No suspicious bony lesions. Plantar calcaneal enthesophyte. M ild hallux valgus. Soft tissues: No tibiotalar joint effusion. Achilles tendon appears normal. IMPRESSION: No acute bony abnormality. Reviewed by: Kenneth Ingram MD on 05/24/2024 5:01 PM PDT Approved by: Kenneth Ingram MD on 05/24/2024 5:01 PM PDT Station ID: [id number]
--- NOTE | 2024-05-24 17:03 | XRAY Report ---
PROCEDURE: Ankle 3+V LT INDICATIONS: SPRAIN OF LEFT FOOT TECHNIQUE: 3 views of the ankle were acquired. COMPARISON: None. FINDINGS: Bones: No fractures or dislocations. Ankle mortise is normally aligned. No suspicious bony lesions . Soft tissues: No significant tibiotalar joint effusion. Achilles tendon appears normal. IMPRESSION: No acute bony abnormality. Reviewed by: Kenneth Ignram MD on 05/24/2024 5:01 PM PDT Approved by: Kenneth Ingram MD on 05/24/2024 5:01 PM PDT Station ID: [id number]
== END 2024-05-24 23:59 | disposition home or self-care (01) ==
LOC: DI.S 08:00
PROVIDERS: ATTEND Physician Assistant Medical
DX: S93.692A Other sprain of left foot, initial encounter (principal)